=== PATIENT | female | born 1990 | race Two or more races ===

== ENCOUNTER 2019-08-16 03:00 | Emergency (ER) | payer SELFPAY ==
[2019-08-16 03:09] VITALS: BP 101/70
--- NOTE | 2019-08-16 04:25 | RADIOLOGY REPORT (SQ) ---
EXAM DESCRIPTION: XR CHEST 2 VIEWS COMPLETED DATE/TME: 08/16/2019 00:00 CLINICAL HISTORY: 29 years, Female, sob COMPARISON: None. NUMBER OF VIEWS: 2 TECHNIQUE: LIMITATIONS: None. FINDINGS: Cardiomediastinal silhouette is normal. Lungs are mildly hyperinflated with interstitial prominence. No focal airspace disease. No effusion. No pneumothorax IMPRESSION: Interstitial prominence. Mild hyperinflation. No focal airspace disease copyright 2010 [employer]- All Rights Reserved
[2019-08-16] MEDS ORDERED: IPRATROPIUM/ALBUTEROL 0.5-2.5 MG/3 ML AMPUL NEB ONE (05:09)
[2019-08-16] MEDS ORDERED: ALBUTEROL SULFATE HFA (90 MCG/PUFF) 8 GM MDI (1 MDI/ER DISP) IH PRN (05:44)
--- NOTE | 2019-08-16 05:46 | ER Document Report ---
HPI - HPI Time Seen by Provider: 08/16/19 05:17 Pain Level: 2 Context: Patient is a 29-year-old female who presents to the emergency department with shortness of breath, rhinorrhea, and a cough. Patient states that her symptoms started 4 days ago. Patient states that she has and environmental allergies, but is not taking any medications for allergies. She had a breathing treatment in triage and states that she feels so much better after receiving her breathing treatment. - ROS Systems Reviewed and Negative: Yes All other systems reviewed and negative - CONSTITUTIONAL Constitutional: DENIES: Fever, Chills - EENT EENT: REPORTS: Nasal Drainage-Clear, Congestion. DENIES: Sore Throat, Nasal Drainage-Purulent, Eye problems - RESPIRATORY Respiratory: REPORTS: Trouble Breathing, Coughing - DERM Skin Color: Normal Skin Problems: None Past Medical History - General Information source: Patient - Social History Smoking Status: Never Smoker Family History: Reviewed & Not Pertinent Patient has suicidal ideation: No Patient has homicidal ideation: No Vertical Provider Document - CONSTITUTIONAL Agree With Documented VS: Yes Exam Limitations: No Limitations General Appearance: No Apparent Distress - INFECTION CONTROL TRAVEL OUTSIDE OF THE [place] IN LAST 30 DAYS: No - HEENT HEENT: Atraumatic, Conjuctival Injection, Normocephalic, PERRLA, Pharyngeal Exudate. negative: Pharyngeal Tenderness, Pharyngeal Erythema, Tympanic Membrane Red, Tympanic Membrane Bulging Notes: clear rhinorrhea - NECK Neck: Normal Inspection, Lymphadenopathy-Right. negative: Lymphadenopathy-Left - RESPIRATORY Respiratory: Wheezing - cleared after breathing treatment - CARDIOVASCULAR Pulses: Normal: Radial - GI/ABDOMEN Gastrointestinal: Abdomen Soft, Abdomen Non-Tender - MUSCULOSKELETAL/EXTREMETIES Musculoskeletal/Extremeties: FROM - NEURO Level of Consciousness: Awake, Alert, Appropriate Motor/Sensory: No Motor Deficit, No Sensory Deficit - DERM Integumentary: Warm, Dry, No Rash Course - Re-evaluation Re-evalutation: 08/16/19 05:47 Patient's chest x-ray shows decreased airflow, which the patient had her chest x-ray before her breathing treatment. Patient now has good air movement throughout all lung avitia. Patient will be started on prednisone. I also instructed her to take cetirizine daily. I also recommended that she take Flonase. She will be sent home with an albuterol inhaler. Follow-up precautions were given. Verbal discharge instructions were given to the patient. They verbalized understanding. They are stable for discharge. - Vital Signs Vital signs: Temp Pulse Resp BP Pulse Ox 98.4 F 103 H 16 101/70 100 08/16/19 03:08 08/16/19 03:08 08/16/19 03:08 08/16/19 03:08 08/16/19 03:08 Discharge - Discharge Clinical Impression: Cough, Rhinorrhea, Seasonal allergies, Shortness of breath Condition: Stable Disposition: HOME, SELF-CARE Additional Instructions: You were seen today in the emergency department for shortness of breath and difficulty breathing, related to your allergies. Please take cetirizine 10 mg daily. You can buy the children's cetirizine. You are also being started on steroids. Take as prescribed. You are being sent home with an albuterol inhaler. You can take 1 to 2 puffs every 4-6 hours as needed for shortness of breath. Please follow-up with 1 of the clinics below. Prescriptions: Prednisolone Sod Phosphate [Prelone Soln 15 Mg/5 Ml Oral Syring] 60 mg PO DAILY 5 Days #1 bottle Forms: Return to Work Referrals: [facility] [Provider Group] - Follow up as needed [facility] [Provider Group] - Follow up as needed
== END 2019-08-16 06:05 | disposition home or self-care (01) ==
LOC: ER 03:00
DX: R05 Cough (principal); R06.02 Shortness of breath; J34.89 Other specified disorders of nose and nasal sinuses; J30.1 Allergic rhinitis due to pollen
CPT/HCPCS: 94640; 99283; 71046; J3490; J7620

== ENCOUNTER 2019-12-13 21:53 | Emergency (ER) | payer SELFPAY ==
--- NOTE | 2019-12-13 22:16 | ER Document Report ---
ED Medical Screen (RME) - General Chief Complaint: Vaginal Bleeding Stated Complaint: VAGINAL BLEEDING 9 WEEKS PREG Primary Care Provider: RICK JOHANSEN CNM [Primary Care Provider] - Follow up as needed Notes: Patient is a 29-year-old female who is G1, P0 at approximate 9 weeks gestation who presents the emergency department with chief complaint of vaginal bleeding and pain in the pelvis. She reports no health visits up to this point. Has called the health department in the past with some spotting and was told this was normal. States this is different. Denies any clots or tissue. States the pain has ceased, was transient in nature. Notices bright red blood with wiping. I have treated and performed a rapid initial assessment of this patient. A comprehensive ED assessment and evaluation of the patient, analysis of test results and completion of medical decision making process will be conducted by additional ED providers. PHYSICAL EXAMINATION: GENERAL: Well-appearing, well-nourished and in no acute distress. A&Ox4. Answers questions appropriately. TRAVEL OUTSIDE OF THE [place] IN LAST 30 DAYS: No - Related Data Allergies/Adverse Reactions: amoxicillin Allergy (Verified 08/16/19 03:55) Physical Exam - Vital signs Vitals: Temp Pulse Resp BP Pulse Ox 99.0 F 99 20 112/64 100 12/13/19 22:08 12/13/19 22:08 12/13/19 22:08 12/13/19 22:08 12/13/19 22:08 Course - Vital Signs Vital signs: Temp Pulse Resp BP Pulse Ox 99.0 F 99 20 112/64 100 12/13/19 22:08 12/13/19 22:08 12/13/19 22:08 12/13/19 22:08 12/13/19 22:08 Doctor's Discharge - Discharge Referrals: RICK JOHANSEN CNM [Primary Care Provider] - Follow up as needed
[2019-12-13 22:39] LABS: ABSOLUTE EOSINOPHILS # (AUTO) 0.1 10^3/uL (0.0-0.6); ABSOLUTE LYMPHOCYTES (AUTO) 3.2 10^3/uL (0.5-4.7); ABSOLUTE MONOCYTES (AUTO) 0.6 10^3/uL (0.1-1.4); BASOPHILS % (AUTO) 0.3 % (0-2); EOSINOPHILS % (AUTO) 0.5 % (0-6); HEMATOCRIT 36.3 % (36.0-47.0); HEMOGLOBIN 12.1 g/dL (12.0-15.5); LYMPHOCYTES % (AUTO) 32.2 % (13-45); MEAN CORPUSCULAR HEMOGLOBIN 24.6 pg (27.0-33.4); MEAN CORPUSCULAR HGB CONC 33.4 g/dL (32.0-36.0); MEAN CORPUSCULAR VOLUME 74 fl (80-97); MONOCYTES % (AUTO) 5.9 % (3-13); PLATELET COUNT 237 10^3/uL (150-450); RED BLOOD COUNT 4.93 10^6/uL (3.72-5.28); RED CELL DISTRIBUTION WIDTH 14.7 % (11.5-14.0); SEGMENTED NEUTROPHILS % (AUTO) 61.1 % (42-78); TOTAL CELLS COUNTED % (AUTO) 100 %; WHITE BLOOD COUNT 9.8 10^3/uL (4.0-10.5)
[2019-12-13 22:51] LABS: APPEARANCE,URINE CLEAR; BILIRUBIN,URINE NEGATIVE (NEGATIVE); COLOR,URINE YELLOW; GLUCOSE, URINE NEGATIVE (NEGATIVE); KETONES,URINE NEGATIVE (NEGATIVE); PROTEIN,URINE NEGATIVE (NEGATIVE); URINE SPECIFIC GRAVITY 1.015; UROBILINOGEN,URINE NEGATIVE mg/dL (<2.0)
[2019-12-13 22:57] LABS: ALBUMIN 4.3 g/dL (3.5-5.0); ALKALINE PHOSPHATASE 47 U/L (38-126); ANION GAP 7 (5-19); ASPARTATE AMINO TRANSFERASE 20 U/L (14-36); BILIRUBIN,TOTAL 0.3 mg/dL (0.2-1.3); BLOOD UREA NITROGEN 9 mg/dL (7-20); CALCIUM 9.5 mg/dL (8.4-10.2); CARBON DIOXIDE 24 mmol/L (22-30); CHLORIDE 103 mmol/L (98-107); GLUCOSE 89 mg/dL (75-110); POTASSIUM 4.4 mmol/L (3.6-5.0); TOTAL PROTEIN 8.1 g/dL (6.3-8.2)
--- NOTE | 2019-12-13 23:48 | ER Document Report ---
Entered by MINDI MCQUEEN SCRIBE 12/13/19 1111 Acting as scribe for:PRINCESS STAFFORD IV, MD ED GI/ - General Chief Complaint: Vaginal Bleeding Stated Complaint: VAGINAL BLEEDING 9 WEEKS PREG Time Seen by Provider: 12/13/19 23:24 Primary Care Provider: RICK JOHANSEN CNM [NO LOCAL MD] - Follow up as needed Mode of Arrival: Ambulatory Information source: Patient Notes: This 29 year old female patient, , approximately x9 weeks presents to the ED today with complaints of vaginal bleeding that started around 2100 this evening. Patient states that she initially had a cramping sensation in her pelvic region that felt "like a shock" followed by light bright red vaginal bleeding. Denies any blood clots or tissue. Denies any cramping at this time. Denies sexual relations in the past x36 hours. She reports that she hasn't had an ultrasound done yet, but she has one scheduled in x2 days at [facility]. TRAVEL OUTSIDE OF THE [place] IN LAST 30 DAYS: No - Related Data Allergies/Adverse Reactions: amoxicillin Allergy (Verified 08/16/19 03:55) Past Medical History - General Information source: Patient - Social History Smoking Status: Unknown if Ever Smoked Cigarette use (# per day): No Chew tobacco use (# tins/day): No Smoking Education Provided: No Family History: Reviewed & Not Pertinent Patient has suicidal ideation: No Patient has homicidal ideation: No Review of Systems - Review of Systems Constitutional: No symptoms reported EENT: No symptoms reported Cardiovascular: No symptoms reported Respiratory: No symptoms reported Gastrointestinal: See HPI, Abdominal pain Genitourinary: No symptoms reported Female Genitourinary: See HPI, , Vaginal bleeding Musculoskeletal: No symptoms reported Skin: No symptoms reported Hematologic/Lymphatic: No symptoms reported Neurological/Psychological: No symptoms reported -: Yes All other systems reviewed and negative Physical Exam - Vital signs Vitals: Temp Pulse Resp BP Pulse Ox 99.0 F 99 20 112/64 100 12/13/19 22:08 12/13/19 22:08 12/13/19 22:08 12/13/19 22:08 12/13/19 22:08 Interpretation: Normal - General General appearance: Appears well, Alert In distress: None - HEENT Head: Normocephalic, Atraumatic Eyes: Normal Pupils: PERRL - Respiratory Respiratory status: No respiratory distress Chest status: Nontender Breath sounds: Normal Chest palpation: Normal - Cardiovascular Rhythm: Regular Heart sounds: Normal auscultation Murmur: No Friction rub: No Gallop: None auscultated - Abdominal Inspection: Normal Distension: No distension Bowel sounds: Normal Tenderness: Nontender - Abdomen soft Organomegaly: No organomegaly - Back Back: Normal, Nontender - Extremities General upper extremity: Normal inspection General lower extremity: Normal inspection - Neurological Neuro grossly intact: Yes Orientation: AAOx4 [place] Coma Scale Eye Opening: Spontaneous [place] Coma Scale Verbal: Oriented [place] Coma Scale Motor: Obeys Commands [place] Coma Scale Total: 15 - Psychological Associated symptoms: Normal affect, Normal mood - Skin Skin Temperature: Warm Skin Moisture: Dry Skin Color: Normal Course - Re-evaluation Re-evalutation: 12/14/19 02:14 Results of ED MSE discussed with patient and patient's significant other. Patient is O+. All questions were answered prior to discharge. Emergency signs and symptoms, reasons to return to the emergency department discussed with patient and patient's significant other. - Vital Signs Vital signs: Temp Pulse Resp BP Pulse Ox 99.0 F 99 20 112/64 100 12/13/19 22:08 12/13/19 22:08 12/13/19 22:08 12/13/19 22:08 12/13/19 22:08 - Laboratory Result Diagrams: 12/13/19 22:24 12/13/19 22:24 Laboratory results interpreted by me: 12/13/19 12/13/19 12/13/19 22:24 22:24 22:24 MCV 74 L MCH 24.6 L RDW 14.7 H Sodium 134.4 L Creatinine 0.51 L Urine Blood SMALL H Leukocyte Esterase Rfl TRACE H - Diagnostic Test Radiology reviewed: Reports reviewed Discharge - Discharge Clinical Impression: Intrauterine Subchorionic hemorrhage in first trimester Qualifiers: Fetus number: single or unspecified fetus Qualified Code(s): O41.8X10 - Other specified disorders of amniotic fluid and membranes, first trimester, not applicable or unspecified; O46.8X1 - Other antepartum hemorrhage, first trimester Condition: Stable Disposition: HOME, SELF-CARE Additional Instructions: Return to the Emergency Department without delay if any worse. HOME CARE INSTRUCTIONS & INFORMATION: Thank you for choosing us for your medical needs. We hope you're satisfied with the care you received. After you leave, you must properly care for your problem and, at the same time, observe its progress. Any condition can change. Some illnesses can change rapidly over hours or days. If your condition worsens, return to the Emergency Department or see your physician promptly. ABOUT YOUR X-RAYS AND EKG'S: If you had an EKG or X-rays taken, they have been read by the Emergency Physician. The X-rays and EKG's will also be read by a Radiologist or [employer] within 24 hours. If discrepancies are noted, you will be notified by telephone. Please be certain the ED has a correct telephone number & address where you can be reached. Also, realize that some fractures or abnormalities do not show up on initial X-rays. If your symptoms continue, see your physician. ABOUT YOUR LABORATORY TEST: If you had laboratory tests, the results have been reviewed by the Emergency Physician. Some test results (for example cultures) may not be available for several days. You will be contacted if any test result shows you need additional treatment. Please be certain the ED has a correct telephone number and address where you can be reached. ABOUT YOUR MEDICATIONS: You will receive instructions on how to take your medicine on the prescription label you receive. Additional information may be provided by the Pharmacy. If you have questions afterwards, call the ED for clarification or further instructions. Some prescribed medications may cause drowsiness. Do not perform tasks such as driving a car or operating machinery without consulting your Pharmacist. If you feel you need a refill of pain medication, your condition will need re-evaluation. Please do not call for a refill of any medication. ABOUT YOUR SIGNATURE: Signature of this document acknowledges to followin. Understanding that you received emergency treatment and that you may be released before al medical problems are known or treated. Please be certain the ED has a correct phone number & address where you can be reached. 2. Acknowledgement that you will arrange for follow-up care as recommended. 3. Authorization for the Emergency Physician to provide information to your follow-up Physician in order to maximize your care. AT ANY TIME, IF YOUR SYMPTOMS CHANGE SIGNIFICANTLY OR WORSEN OR YOU DEVELOP NEW SYMPTOMS, RETURN TO THE EMERGENCY DEPARTMENT IMMEDIATELY FOR RE-EVALUATION. OUR GOAL IS TO PROVIDE EXCELLENT MEDICAL CARE! WE HOPE THAT WE HAVE MET YOUR EXPECTATIONS DURING YOUR EMERGENCY DEPARTMENT VISIT AND THAT YOU FEEL YOU HAVE RECEIVED EXCELLENT CARE! Bleeding During Early You have been evaluated for passing blood while . While we take this symptom very seriously, most women with your degree of bleeding will go on to have a perfectly normal baby. At this time, there is no indication that a miscarriage will occur. (A miscarriage occurs when the fetus is abnormal. There is no medicine or treatment to prevent it.) A more serious cause of bleeding is tubal . An ultrasound can show whether the is in the uterus or in the tube. Sometimes in early , no fetus is seen. In this case, careful follow-up, including repeat blood tests and repeat ultrasound, is necessary. You should rest in bed until the symptoms have resolved. Do not douche or have sex for at least a week, or until OK'd by the doctor. Don't use tampons. Call the doctor or return for re-examination if there is an increase in bleeding or cramping, extreme weakness, fainting, new abdominal pain, fever, or passage of tissue. Referrals: RICK JOHANSEN CNM [NO LOCAL MD] - Follow up as needed [facility] [NO LOCAL MD] - 12/15/19 I personally performed the services described in the documentation, reviewed and edited the documentation which was dictated to the scribe in my presence, and it accurately records my words and actions.
--- NOTE | 2019-12-14 01:33 | RADIOLOGY REPORT (SQ) ---
EXAM: First trimester OB ultrasound CLINICAL INDICATION: Bleeding and pain COMPARISON: None. TECHNIQUE: First trimester OB ultrasound was performed. FINDINGS: Uterus: The uterus measures 9.0 x 6.4 x 7.3 cm. The cervix is closed and measures 2.9 cm. A single gestational sac is noted. The crown-rump length is 2.85 cm which correlates with a gestational age of nine weeks five days. cardiac activity is noted at 171 bpm. The ultrasound gestational age is nine weeks five days and the estimated delivery date is 07/13/2020. Adjacent to the gestational sac is a small hypoechoic area measuring 1.5 x 1.2 x 2.0 cm which may represent a small subchorionic hemorrhage. Ovaries and adnexa: The left ovary measures 3.0 x 1.6 x 1.7 cm. Morphology is normal. Normal color and spectral waveforms. The right ovary measures 2.8 x 1.5 x 1.8 cm and is morphologically normal with normal color flow. No adnexal mass. No free fluid. IMPRESSION: Single living intrauterine with gestational age of nine weeks five days and estimated delivery dated 07/13/2020. There is a small subchorionic hemorrhage adjacent to the gestational sac which may account for the bleeding.
[2019-12-14 02:19] VITALS: BP 100/61
== END 2019-12-14 02:23 | disposition home or self-care (01) ==
LOC: ER 21:53
DX: O41.8X10 Other specified disorders of amniotic fluid and membranes, first trimester, not applicable or unspecified (principal); Z3A.09 9 weeks gestation of pregnancy; Z88.0 Allergy status to penicillin
CPT/HCPCS: 36415; 76801; 80053; 81001; 84702; 85025; 86900; 86901; 87086; 87088; 93976; 99284

== ENCOUNTER → 2019-12-15 | Outpatient (CLI) | payer SELFPAY ==
--- NOTE | 2019-12-15 14:09 | RADIOLOGY REPORT (SQ) ---
EXAM DESCRIPTION: U/S [id number] TRNABD 1GES W/ODOP IMAGES COMPLETED DATE/TIME: 12/15/2019 1:35 pm REASON FOR STUDY: Z34.01 ENCNTR FOR SUPRVSN OF NORMAL FIRST PREG, FIRST TRIMESTER Z34.01 ENCNTR FOR SUPRVSN OF NORMAL FIRST PREG, FIRST TRIMES COMPARISON: None. TECHNIQUE: Transabdominal static and realtime grayscale images acquired of the pelvis. Additional se lected spectral and color Doppler images recorded. All images stored on PACs. bHCG: Unknown CLINICAL DATES: LMP 10/07/2019 9 weeks 6 days LIMITATIONS: None. FINDINGS: FETUS: Single Living intrauterine . ULTRASOUND EGA: 10 weeks 1 day ULTRASOUND MARCUS: 07/11/2020 EFW: Not applicable less than 20 weeks. CRL: 3.3 cm FHR: 171 beats per minute. SURVEY: Too early to assess. AMNIOTIC FLUID: Adequate amount. PLACENTA: Not yet developed due to early gestation. SUBCHORIONIC BLEED: Yes SIZE OF BLEED: 2.3 x 0.6 x 0.9 cm UTERUS: No masses. No anomalies. CERVICAL LENGTH: 2.6 cm. Closed. RIGHT ADNEXA: Normal ovary with normal vascular flow. 2.1 x 1.6 x 1.4 cm. No adnexal free fluid. No adnexal masses. LEFT ADNEXA: Normal ovary with normal vascular flow. 2.7 x 1.5 x 1.4 cm. 1.4 x 1.5 x 1 cm corpus cinda teum. No adnexal free fluid. No adnexal masses. FREE FLUID: None. OTHER: No other significant finding. IMPRESSION: LIVING INTRAUTERINE . EGA 10 weeks 1 day Trimester of : First trimester - 0 to 13 weeks. TECHNICAL DOCUMENTATION: JOB ID: [id number] 2010 [employer]- All Rights Reserved rev Reading location - IP/workstation name: [email or web address]
== END ==
LOC: RAD 12:51
PROVIDERS: ATTEND Midwife
DX: Z34.01 Encounter for supervision of normal first pregnancy, first trimester (principal); Z3A.10 10 weeks gestation of pregnancy
CPT/HCPCS: 76801

== ENCOUNTER 2020-01-10 19:32 | Emergency (ER) | payer MEDICAID ==
[2020-01-10 19:39] VITALS: BP 123/71
--- NOTE | 2020-01-10 21:24 | ER Document Report ---
ED Medical Screen (RME) - General Chief Complaint: Vaginal Bleeding Stated Complaint: VAGINAL BLEEDING Time Seen by Provider: 01/10/20 21:20 Mode of Arrival: Ambulatory Information source: Patient Notes: 29-year-old female presents to ED for increased vaginal bleeding. She states she was seen recently and told she had a subchorionic bleed. She states tonight the bleeding has gotten much worse. She states she occasionally has some pain in the back but nothing that is very much. She is 1 para 0. She does not smoke drink or use any drugs. She states her last menstrual period was November 07. He was seen here last month had a ultrasound she had RhoGam test and she is O positive blood type. I have greeted and performed a rapid initial assessment of this patient. A comprehensive ED assessment and evaluation of the patient, analysis of test results and completion of medical decision making process will be conducted by an additional ED providers. TRAVEL OUTSIDE OF THE [place] IN LAST 30 DAYS: No - Related Data Allergies/Adverse Reactions: amoxicillin Allergy (Verified 08/16/19 03:55) Physical Exam - Vital signs Vitals: Temp Pulse Resp BP Pulse Ox 99.2 F 106 H 18 123/71 98 01/10/20 19:37 01/10/20 19:37 01/10/20 19:37 01/10/20 19:37 01/10/20 19:37 Course - Vital Signs Vital signs: Temp Pulse Resp BP Pulse Ox 99.2 F 106 H 18 123/71 98 01/10/20 19:37 01/10/20 19:37 01/10/20 19:37 01/10/20 19:37 01/10/20 19:37
--- NOTE | 2020-01-10 22:12 | RADIOLOGY REPORT (SQ) ---
EXAM DESCRIPTION: US LIMITED COMPLETED DATE/TME: 01/10/2020 21:21 CLINICAL HISTORY: 29 years, Female, Increased vaginal bleeding today 13 w 5 d COMPARISON: 12/15/2019 ultrasound TECHNIQUE: Limited emergent ultrasound LIMITATIONS: None. FINDINGS: Cervical length 3.1 cm. A single, live intrauterine gestation with heart tones 163 bpm. Ultrasound age is 14 weeks 0 days. The placenta is anterior in location with a grade 1 echotexture. No evidence for previa. A detailed anatomic assessment was not performed at this time. Amniotic fluid volume subjectively normal IMPRESSION: Single, live IUP as above. Nonemergent obstetric follow-up recommended copyright 2010 [employer]- All Rights Reserved
[2020-01-10 22:18] LABS: APPEARANCE,URINE SLIGHTLY-CLOUDY; BILIRUBIN,URINE NEGATIVE (NEGATIVE); COLOR,URINE STRAW; GLUCOSE, URINE NEGATIVE (NEGATIVE); KETONES,URINE NEGATIVE (NEGATIVE); LEUKOCYTE ESTERASE,URINE NEGATIVE (NEGATIVE); NITRITE,URINE NEGATIVE (NEGATIVE); PROTEIN,URINE NEGATIVE (NEGATIVE); URINE SPECIFIC GRAVITY 1.004; UROBILINOGEN,URINE NEGATIVE mg/dL (<2.0)
[2020-01-10 22:22] LABS: ABSOLUTE LYMPHOCYTES (AUTO) 2.4 10^3/uL (0.5-4.7); ABSOLUTE MONOCYTES (AUTO) 0.5 10^3/uL (0.1-1.4); ABSOLUTE NEUT (AUTO) 7.3 10^3/uL (1.7-8.2); BASOPHILS % (AUTO) 0.2 % (0-2); EOSINOPHILS % (AUTO) 0.3 % (0-6); HEMATOCRIT 35.5 % (36.0-47.0); HEMOGLOBIN 11.7 g/dL (12.0-15.5); LYMPHOCYTES % (AUTO) 23.1 % (13-45); MEAN CORPUSCULAR HEMOGLOBIN 24.3 pg (27.0-33.4); MEAN CORPUSCULAR VOLUME 74 fl (80-97); MONOCYTES % (AUTO) 5.3 % (3-13); PLATELET COUNT 240 10^3/uL (150-450); RED BLOOD COUNT 4.81 10^6/uL (3.72-5.28); RED CELL DISTRIBUTION WIDTH 14.2 % (11.5-14.0); SEGMENTED NEUTROPHILS % (AUTO) 71.1 % (42-78); TOTAL CELLS COUNTED % (AUTO) 100 %; WHITE BLOOD COUNT 10.3 10^3/uL (4.0-10.5)
[2020-01-10 22:34] LABS: ALBUMIN 4.1 g/dL (3.5-5.0); ALKALINE PHOSPHATASE 48 U/L (38-126); ANION GAP 9 (5-19); ASPARTATE AMINO TRANSFERASE 19 U/L (14-36); BILIRUBIN,TOTAL 0.3 mg/dL (0.2-1.3); BLOOD UREA NITROGEN 7 mg/dL (7-20); CALCIUM 9.4 mg/dL (8.4-10.2); CARBON DIOXIDE 22 mmol/L (22-30); CHLORIDE 103 mmol/L (98-107); GLUCOSE 85 mg/dL (75-110); POTASSIUM 3.7 mmol/L (3.6-5.0)
--- NOTE | 2020-01-10 23:05 | ER Document Report ---
Entered by MINDI MCQUEEN SCRIBE 01/10/20 2241 Acting as scribe for:PRINCESS STAFFORD IV, MD ED GI/ - General Chief Complaint: OB Problem (<20wks) Stated Complaint: VAGINAL BLEEDING Time Seen by Provider: 01/10/20 21:20 Mode of Arrival: Ambulatory Information source: Patient Notes: This 29 year old female patient, , currently x14 weeks presents to the ED today with concerns for possible miscarriage due to heavy vaginal bleeding that started prior to arrival. Patient states that she has been having some spotting which is normal for her, but today the bleeding was much worse. Denies any abdominal cramping or sexual relations in the past x36 hours. Patient was seen here x1 month ago with the same complaint and had an ultrasound done which revealed a small subchorionic hemorrhage. [facility]. TRAVEL OUTSIDE OF THE [place] IN LAST 30 DAYS: No - Related Data Allergies/Adverse Reactions: amoxicillin Allergy (Verified 08/16/19 03:55) Home Medications: Past Medical History - General Information source: Patient - Social History Smoking Status: Never Smoker Cigarette use (# per day): No Chew tobacco use (# tins/day): No Smoking Education Provided: No Frequency of alcohol use: None Drug Abuse: None Lives with: Spouse/Significant other Family History: Reviewed & Not Pertinent Patient has suicidal ideation: No Patient has homicidal ideation: No - Medical History Medical History: Negative Surgical Hx: Negative Review of Systems - Review of Systems Constitutional: No symptoms reported EENT: No symptoms reported Cardiovascular: No symptoms reported Respiratory: No symptoms reported Gastrointestinal: See HPI. denies: Abdominal pain Genitourinary: No symptoms reported Female Genitourinary: See HPI, , Vaginal bleeding Musculoskeletal: No symptoms reported Skin: No symptoms reported Hematologic/Lymphatic: No symptoms reported Neurological/Psychological: No symptoms reported -: Yes All other systems reviewed and negative Physical Exam - Vital signs Vitals: Temp Pulse Resp BP Pulse Ox 99.2 F 106 H 18 123/71 98 01/10/20 19:37 01/10/20 19:37 01/10/20 19:37 01/10/20 19:37 01/10/20 19:37 - General General appearance: Alert In distress: None - HEENT Head: Normocephalic, Atraumatic Eyes: Normal Pupils: PERRL - Respiratory Respiratory status: No respiratory distress Chest status: Nontender Breath sounds: Normal Chest palpation: Normal - Cardiovascular Rhythm: Regular Heart sounds: Normal auscultation Murmur: No Friction rub: No Gallop: None auscultated - Abdominal Inspection: Normal Distension: No distension Bowel sounds: Normal Tenderness: Nontender - Abdomen soft Organomegaly: No organomegaly - Back Back: Normal, Nontender - Extremities General upper extremity: Normal inspection General lower extremity: Normal inspection - Neurological Neuro grossly intact: Yes Orientation: AAOx4 [place] Coma Scale Eye Opening: Spontaneous [place] Coma Scale Verbal: Oriented [place] Coma Scale Motor: Obeys Commands [place] Coma Scale Total: 15 - Psychological Associated symptoms: Normal affect, Normal mood - Skin Skin Temperature: Warm Skin Moisture: Dry Skin Color: Normal Course - Re-evaluation Re-evalutation: 01/10/20 23:18 Results of ED MSE discussed with patient and patient's significant other. Patient denies any heavy vaginal bleeding at this time. All questions were answered prior to discharge. Pelvic rest and close follow-up with her [employer]ER were also encouraged. Emergency signs and symptoms, reasons to return to the emergency department discussed with patient. - Vital Signs Vital signs: Temp Pulse Resp BP Pulse Ox 99.2 F 106 H 18 123/71 98 01/10/20 19:37 01/10/20 19:37 01/10/20 19:37 01/10/20 19:37 01/10/20 19:37 - Laboratory Result Diagrams: 01/10/20 22:06 01/10/20 22:06 Laboratory results interpreted by me: 01/10/20 01/10/20 01/10/20 21:00 22:06 22:06 Hgb 11.7 L Hct 35.5 L MCV 74 L MCH 24.3 L RDW 14.2 H Sodium 133.6 L Creatinine 0.42 L Urine Blood SMALL H - Diagnostic Test Radiology reviewed: Reports reviewed Discharge - Discharge Clinical Impression: Intrauterine , Vaginal bleeding before 22 weeks gestation Condition: Stable Disposition: HOME, SELF-CARE Additional Instructions: Return to the Emergency Department without delay if any worse. HOME CARE INSTRUCTIONS & INFORMATION: Thank you for choosing us for your medical needs. We hope you're satisfied with the care you received. After you leave, you must properly care for your problem and, at the same time, observe its progress. Any condition can change. Some illnesses can change rapidly over hours or days. If your condition worsens, return to the Emergency Department or see your physician promptly. ABOUT YOUR X-RAYS AND EKG'S: If you had an EKG or X-rays taken, they have been read by the Emergency Physician. The X-rays and EKG's will also be read by a Radiologist or Adjunct Professor within 24 hours. If discrepancies are noted, you will be notified by telephone. Please be certain the ED has a correct telephone number & address where you can be reached. Also, realize that some fractures or abnormalities do not show up on initial X-rays. If your symptoms continue, see your physician. ABOUT YOUR LABORATORY TEST: If you had laboratory tests, the results have been reviewed by the Emergency Physician. Some test results (for example cultures) may not be available for several days. You will be contacted if any test result shows you need additional treatment. Please be certain the ED has a correct telephone number and address where you can be reached. ABOUT YOUR MEDICATIONS: You will receive instructions on how to take your m edicine on the prescription label you receive. Additional information may be provided by the Pharmacy. If you have questions afterwards, call the ED for clarification or further instructions. Some prescribed medications may cause drowsiness. Do not perform tasks such as driving a car or operating machinery without consulting your Pharmacist. If you feel you need a refill of pain medication, your condition will need re-evaluation. Please do not call for a refill of any medication. ABOUT YOUR SIGNATURE: Signature of this document acknowledges to followin. Understanding that you received emergency treatment and that you may be released before al medical problems are known or treated. Please be certain the ED has a correct phone number & address where you can be reached. 2. Acknowledgement that you will arrange for follow-up care as recommended. 3. Authorization for the Emergency Physician to provide information to your follow-up Physician in order to maximize your care. AT ANY TIME, IF YOUR SYMPTOMS CHANGE SIGNIFICANTLY OR WORSEN OR YOU DEVELOP NEW SYMPTOMS, RETURN TO THE EMERGENCY DEPARTMENT IMMEDIATELY FOR RE-EVALUATION. OUR GOAL IS TO PROVIDE EXCELLENT MEDICAL CARE! WE HOPE THAT WE HAVE MET YOUR EXPECTATIONS DURING YOUR EMERGENCY DEPARTMENT VISIT AND THAT YOU FEEL YOU HAVE RECEIVED EXCELLENT CARE! Referrals: HEALTH DEPT,[facility] [[facility]] - 01/11/20 I personally performed the services described in the documentation, reviewed and edited the documentation which was dictated to the scribe in my presence, and it accurately records my words and actions.
== END 2020-01-10 23:32 | disposition home or self-care (01) ==
LOC: ER 19:32
DX: O20.9 Hemorrhage in early pregnancy, unspecified (principal); Z79.899 Other long term (current) drug therapy; Z88.0 Allergy status to penicillin; Z3A.14 14 weeks gestation of pregnancy
CPT/HCPCS: 36415; 76815; 80053; 81001; 84702; 85025; 99284

== ENCOUNTER 2020-05-06 12:04 | Outpatient (CLI) | payer MEDICAID ==
[2020-05-06 13:05] LABS: APPEARANCE,URINE CLEAR; BILIRUBIN,URINE NEGATIVE (NEGATIVE); COLOR,URINE STRAW; GLUCOSE, URINE NEGATIVE (NEGATIVE); KETONES,URINE NEGATIVE (NEGATIVE); LEUKOCYTE ESTERASE,URINE TRACE (NEGATIVE); NITRITE,URINE NEGATIVE (NEGATIVE); PROTEIN,URINE NEGATIVE (NEGATIVE); URINE SPECIFIC GRAVITY 1.003; UROBILINOGEN,URINE NEGATIVE mg/dL (<2.0)
[2020-05-06 13:21] LABS: URINE AMPHETAMINES SCREEN NEGATIVE; URINE BARBITURATES SCREEN NEGATIVE; URINE BENZODIAZEPINES SCREEN NEGATIVE; URINE COCAINE SCREEN NEGATIVE; URINE MARIJUANA (THC) SCREEN NEGATIVE; URINE METHADONE SCREEN NEGATIVE; URINE PHENCYCLIDINE SCREEN NEGATIVE
[2020-05-06 13:30] LABS: BACTERIA (WET MOUNT) 3+ BACTERIA SEEN; EPITHELIALS (WET MOUNT) 3+ EPITHELIALS SEEN; RBCS (WET MOUNT) FEW RBCS SEEN; T.VAGINALIS (WET MOUNT) NO TRICHOMONAS SEEN; WBCS (WET MOUNT) 2+ WBCS SEEN; YEAST (WET MOUNT) YEAST SEEN
--- NOTE | 2020-05-06 14:36 | RADIOLOGY REPORT (SQ) ---
EXAM DESCRIPTION: U/S OB LIMITED IMAGES COMPLETED DATE/TIME: 05/06/2020 2:21 pm REASON FOR STUDY: Cervical Length - Transvaginal COMPARISON: None. TECHNIQUE: Limited transabdominal grayscale ultrasound for evaluation of specific requested obstetri salas parameters. LIMITATIONS: None. FINDINGS: CERVICAL LENGTH: 2.7 cm Closed with fluid posterior to the external os. JUSTUS: 15.9 cm. LVP: 8 x 5.9 cm. FHR: 158 beats per minute. PRESENTATION: Vertex. PLACENTA: Anterior. ANATOMY: Not assessed OTHER: No other findings. IMPRESSION: LIMITED OBSTETRICAL ULTRASOUND WITH MEASURED PARAMETERS DELINEATED ABOVE. Trimester of : Third trimester - 28 weeks to delivery. TECHNICAL DOCUMENTATION: JOB ID: [id number] [employer]- All Rights Reserved Reading location - IP/workstation name: [email or web address]
[2020-05-06 14:57] LABS: CHLAM PCR NOT DETECTED (NOT DETECT)
== END 2020-05-06 15:30 | disposition home or self-care (01) ==
LOC: LC 12:04
PROVIDERS: ATTEND Student in an Organized Health Care Education/Training Program
DX: O98.813 Other maternal infectious and parasitic diseases complicating pregnancy, third trimester (principal); B37.9 Candidiasis, unspecified; Z3A.30 30 weeks gestation of pregnancy; Z88.1 Allergy status to other antibiotic agents
CPT/HCPCS: 76815; 80307; 81001; 87210; 87491; 87591

== ENCOUNTER 2020-06-01 11:20 | Outpatient (CLI) | payer MEDICAID ==
[2020-06-01] MEDS ORDERED: BETAMET ACET/BETAMET NA INJ 6 MG/1 ML ONE (11:32)
[2020-06-01 12:14] LABS: APPEARANCE,URINE CLEAR; BILIRUBIN,URINE NEGATIVE (NEGATIVE); COLOR,URINE YELLOW; GLUCOSE, URINE NEGATIVE (NEGATIVE); KETONES,URINE NEGATIVE (NEGATIVE); LEUKOCYTE ESTERASE,URINE LARGE (NEGATIVE); NITRITE,URINE NEGATIVE (NEGATIVE); PROTEIN,URINE NEGATIVE (NEGATIVE); UROBILINOGEN,URINE NEGATIVE mg/dL (<2.0)
[2020-06-01] MEDS ORDERED: BETAMET ACET/BETAMET NA INJ 6 MG/1 ML IM SCH (12:15)
[2020-06-01 12:34] LABS: URINE AMPHETAMINES SCREEN NEGATIVE; URINE BARBITURATES SCREEN NEGATIVE; URINE BENZODIAZEPINES SCREEN NEGATIVE; URINE COCAINE SCREEN NEGATIVE; URINE MARIJUANA (THC) SCREEN NEGATIVE; URINE METHADONE SCREEN NEGATIVE; URINE PHENCYCLIDINE SCREEN NEGATIVE
[2020-06-01] MEDS ORDERED: VANCOMYCIN HCL 1,000 MG in DEXTROSE 5%-WATER 250 ML IV ONE (13:30)
--- NOTE | 2020-06-01 13:34 | RADIOLOGY REPORT (SQ) ---
EXAM DESCRIPTION: U/S OB LIMITED IMAGES COMPLETED DATE/TIME: 06/01/2020 1:06 pm REASON FOR STUDY: possible ROM COMPARISON: 05/06/2020 TECHNIQUE: Limited transabdominal grayscale ultrasound for evaluation of specific requested obstetri salas parameters. LIMITATIONS: None. FINDINGS: CERVICAL LENGTH: 3.3 cm. Closed. JUSTUS: 8.9 cm. LVP: 4.4 x 3.4 cm. FHR: 163 beats per minute. PRESENTATION: Cephalic. PLACENTA: Anterior. Grade 2. There appears to be a small placental waters. ANATOMY: Not assessed OTHER: Intrauterine gestation of 34 weeks 2 days. IMPRESSION: LIMITED OBSTETRICAL ULTRASOUND WITH MEASURED PARAMETERS DELINEATED ABOVE. Trimester of : Third trimester - 28 weeks to delivery. TECHNICAL DOCUMENTATION: JOB ID: [id number] [employer]- All Rights Reserved Reading location - IP/workstation name: [email or web address]
[2020-06-01] MEDS ORDERED: VANCOMYCIN HCL INJ 1000 MG VIAL IV ONE (13:38)
--- NOTE | 2020-06-01 13:44 | PDOC TRANSFER SUMMARY ---
General - Transfer Diagnosis (1) IUP (intrauterine ), incidental Is this a current diagnosis for this admission?: Yes (2) Rupture, membranes, premature Is this a current diagnosis for this admission?: Yes - Transfer Medications Home Medications: Vit,Calc76/Iron/Folic [Prenatabs Rx Tablet] 1 tab PO DAILY 05/06/20 Transfer Medications: Current Medications Betamethasone Acet/Betameth SodPhos (Betamet Acet/Betamet Na Inj 6 Mg/1 Ml) 12 mg IM DAILY AUDREY Stop: 06/02/20 10:01 - Allergies Allergies/Adverse Reactions: amoxicillin Allergy (Verified 06/01/20 12:09) Hospital Course Hospital Course: pt given first dose of steroid, antibiotics and,Mg sulfate for neuro-protection Physical Exam General appearance: PRESENT: no acute distress, well-developed, well-nourished Head exam: PRESENT: atraumatic, normocephalic Eye exam: PRESENT: conjunctiva pink, EOMI, PERRLA. ABSENT: scleral icterus Ear exam: PRESENT: normal external ear exam Mouth exam: PRESENT: moist, tongue midline Neck exam: ABSENT: carotid bruit, JVD, lymphadenopathy, thyromegaly Respiratory exam: PRESENT: clear to auscultation carlene. ABSENT: rales, rhonchi, wheezes Cardiovascular exam: PRESENT: RRR. ABSENT: diastolic murmur, rubs, systolic murmur Pulses: PRESENT: normal dorsalis pedis pul Vascular exam: PRESENT: normal capillary refill GI/Abdominal exam: PRESENT: normal bowel sounds - cervix closed visually, soft. ABSENT: distended, guarding, mass, organolmegaly, rebound, tenderness Rectal exam: PRESENT: deferred Extremities exam: PRESENT: full ROM. ABSENT: calf tenderness, clubbing, pedal edema Neurological exam: PRESENT: alert, awake, oriented to person, oriented to place, oriented to time, oriented to situation, CN II-XII grossly intact. ABSENT: motor sensory deficit Psychiatric exam: PRESENT: appropriate affect, normal mood. ABSENT: homicidal ideation, suicidal ideation Skin exam: PRESENT: dry, intact, warm. ABSENT: cyanosis, rash Results Laboratory Results: 06/01/20 11:30 Urine Color YELLOW Urine Appearance CLEAR Urine pH 7.0 Ur Specific [place] 1.000 Urine Protein NEGATIVE Urine Glucose (UA) NEGATIVE Urine Ketones NEGATIVE Urine Blood NEGATIVE Urine Nitrite NEGATIVE Ur Leukocyte Esterase LARGE H Urine WBC (Auto) 38 Urine RBC (Auto) 2 Impressions: Obstetrics Ultrasound 06/01/20 00:00 IMPRESSION: LIMITED OBSTETRICAL ULTRASOUND WITH MEASURED PARAMETERS DELINEATED ABOVE. Trimester of : Third trimester - 28 weeks to delivery. Plan Discharge Plan: transfer to [facility]boza for NICU availability Time Spent: Greater than 30 Minutes
[2020-06-01] MEDS ORDERED: MAGNESIUM SULFATE 20 GM/500 ML RTUINJ IV ONE (13:48)
[2020-06-01] MEDS ORDERED: MAGNESIUM SULFATE 4 GM/100 ML RTUPB IV ONE ×2 (13:48→14:30)
== END 2020-06-01 15:53 | disposition short-term general hospital (02) ==
LOC: LC 11:20
PROVIDERS: ATTEND Obstetrics & Gynecology Gynecology
DX: O98.513 Other viral diseases complicating pregnancy, third trimester (principal); U07.1 COVID-19; O42.913 Preterm premature rupture of membranes, unspecified as to length of time between rupture and onset of labor, third trimester; Z3A.33 33 weeks gestation of pregnancy; Z88.1 Allergy status to other antibiotic agents
CPT/HCPCS: 59025; 96372; 0241U ×4; 81001; 80307; 84112; 76815; J3475 ×2; J0702; J7060; J3370; C9803